=== PATIENT | male | born 1995 | race African-American/Black ===

== ENCOUNTER 2024-12-26 08:33 | Emergency (ER) | payer OTHER, SELFPAY ==
[2024-12-26 08:38] VITALS: BP 183/134; PULSE 84; RESP 24; TEMP 36.4; O2SAT 97; BMI 44.1
--- NOTE | 2024-12-26 08:41 | CRLHL7_ITS ---
For Patients: As a result of the Century Cures Act, medical imaging exams and procedure reports are released immediately into your electronic medical record. You may view this report before your referring provider. If you have questions, please contact your health care provider. INDICATION: Left knee pain and swelling. COMPARISON: None available. TECHNIQUE: Three views of the left knee. FINDINGS: Mineralization: Normal. Alignment: Normal. Bones and Joints: Femoral and tibial suspensory devices consistent with prior ACL repair are noted. Mild medial tibiofemoral osteoarthrosis. No fracture is identified. Soft Tissues: No significant joint effusion or focal periarticular soft tissue swelling. Clustered calcifications measuring 3 mm and smaller are present at the anterior joint line level on the lateral view. These may represent small loose intra-articular bodies. IMPRESSION: No acute findings to explain the clinical history of pain and swelling. Findings consistent with prior ACL repair. No significant joint effusion or focal periarticular soft tissue swelling on this radiographic study. Incidental findings described in the body of the report. Dictated by Colten Quezada MD @ 12/26/2024 9:18:29 AM (Electronically Signed)
--- NOTE | 2024-12-26 08:46 | ED.LOWEXIN ---
HPI - Extremity Injury (Lower) General Time Seen by Provider: 08:46 Date Seen: 12/26/24 Chief Complaint: Extremity Pain/Injury, Lower Stated Complaint: left knee pain Time Seen by Provider: 12/26/24 08:46 Source: patient and RN notes reviewed Mode of arrival: ambulatory Limitations: no limitations History of Present Illness HPI Narrative: This 29-year-old male is coming in with complaint of left knee pain. This pain awoke him around 2:00 a.m.. He tried Tylenol, tried elevating, tried ice and heat. He cannot bear weight on it. He has swelling below the kneecap on the left knee now. Any movement or any attempts to bear weight are painful. Did play softball last night but does not have any injury from that. He left softball, drove home, had no problems. He has a history of ACL, meniscus and MCL repair in this knee about 4 years ago. Patient has no symptomatic history of gout, he has never been diagnosed with it. He has never had any joint problems that have been concerning outside of his injury before. There have been no fevers. He is not aware of any family history of gout. Related Data Previous Rx's ?Medication ?Instructions ?Recorded oxycodone 5 mg tablet 5 mg PO Q6H PRN pain #15 tabs 12/26/24 Allergies Allergy/AdvReac Type Severity Reaction Status Date / Time No Known Drug Allergies Allergy Verified 12/26/24 08:41 Review of Systems Status of ROS: Reports: 6 or more systems reviewed and unremarkable except as noted in History and below PFSH PFS Surgical History H/O arthroscopy of left knee (2020) ?Z98.890 - Other specified postprocedural states (ICD-10) Social History Smoking Status: Unknown if ever smoked Exam Const: Vital Signs, click to edit/add: Vital Signs - 24 hr 12/26/24 08:38 12/26/24 10:40 12/26/24 10:40 Temperature 97.5 F L Pulse Rate [Pulse Oximeter] 84 80 Respiratory Rate 24 24 Blood Pressure [Ri ght Upper Arm] 183/134 H Pulse Oximetry 97 93 93 Oxygen Delivery Me thod Room Air Room Air 12/26/24 11:59 Temperature Pulse Rate [Pulse Oximeter] 78 Respiratory Rate 18 Blood Pressure [Ri ght Upper Arm] 155/104 H Pulse Oximetry 96 Oxygen Delivery Me thod Room Air This 29-year-old male is alert, interactive, seen in exam room 1. With straight leg raise, any attempts at any manipulation of his knee he has severe pain. There is maybe slight fluid inferiorly but overall I would not say he has a significant effusion. There is no erythema, no warmth to the knee. He has some anterior medial joint line pain. I do not feel any popliteal fossa mass. Patella is nontender. No lateral joint line tenderness. He can lift the leg off the bed slightly but it is significantly painful. Documenting provider has reviewed patient's vital signs: yes Course Course ED Course: Patient has tolerated narcotics in the past, do think he has level of pain that we need to initiate some pain management for him. Have ordered 5 mg of oxycodone. Will obtain left knee x-rays. May need to consider advanced imaging in this patient. Reevaluation(s) Time of Reevaluation #1: 09:18 Reevaluation #1: Reviewed with patient that I have visualized his knee x-rays, do not see any definite acute pathology but awaiting Radiology over-read. Nursing staff is getting him an ice pack as his pain has not subsided. He really only had the oxycodone about 15-20 minutes ago, will give this a little longer. He declined Toradol injection at this point. Orthopedics is currently in surgery, am hoping to talk to them about getting this patient an MRI as I think he is likely going to need it. Time of Reevaluation #2: 10:29 Reevaluation #2: Nursing staff reports that patient is still pretty miserable with his pain. We are going to place an IV, give IV pain medicines with morphine and Toradol, will premedicate with Zofran. Will have him on pulse oximetry given that he is getting narcotics. Need him comfortable prior to going to the MRI. Do have him scheduled to see Dr. Mahoney this afternoon. Will get baseline labs as we are placing an IV. Time of Reevaluation #3: 11:55 Reevaluation #3: Have reviewed patient's MRI report with him. There are many things here, unclear to me what necessarily is the causative etiology but there are multitude of abnormalities on his MRI. Dr. Mahoney in Orthopedics will be seeing him this afternoon. Patient does feel he wants a knee immobilizer, feels better if the knee is not moving. We will fit him for a knee immobilizer. We will also provide him crutches as he does not have any. Will discharge to home with outpatient follow-up with Orthopedics this afternoon. Consultations Consultation #1: Have spoken with Heather from orthopedics. She agrees with MRI and there is possibility of Dr. Mahoney can see this patient this afternoon. 12:00 p.m.: Did call Dr. Mahoney and briefly reviewed MRI report. Discussed pain management with him. I will write for 15 tablets of oxycodone, he feels this should be sufficient for initial pain management for this patient in that this patient should not be narcotic dependent. He will be seen the patient later. Note patient's pain is controlled at the time, did do much better with some initial IV management. Time: 10:13 Vital Signs Vital signs: Initial Vital Signs Temperature 97.5 F L 12/26/24 08:38 Temperature Source Temporal Artery Scan 12/26/24 08:38 Pulse Rate 84 12/26/24 08:38 Respiratory Rate 24 12/26/24 08:38 Blood Pressure 183/134 H 12/26/24 08:38 Blood Pressure Mean 150 H 12/26/24 08:38 Blood Pressure Position Sitting 12/26/24 08:38 Pulse Oximetry 97 12/26/24 08:38 Oxygen Delivery Method Room Air 12/26/24 08:38 Vital Signs Temperature 97.5 F L 12/26/24 08:38 Pulse Rate 84 12/26/24 08:38 Respiratory Rate 24 12/26/24 08:38 Blood Pressure 183/134 H 12/26/24 08:38 Pulse Oximetry 97 12/26/24 08:38 Oxygen Delivery Method Room Air 12/26/24 08:38 Temperature 97.5 F L 12/26/24 08:38 Pulse Rate 78 12/26/24 11:59 Respiratory Rate 18 12/26/24 11:59 Blood Pressure 155/104 H 12/26/24 11:59 Pulse Oximetry 96 12/26/24 11:59 Oxygen Delivery Method Room Air 12/26/24 11:59 Medications Administered Medications: Discontinued Medications Generic Name Dose Route Start Last Admin Trade Name Monserrat PRN Reason Stop Dose Admin Ketorolac Tromethamine 15 mg 12/26/24 10:27 12/26/24 10:35 Ketorolac 15 Mg/Ml Inj IVP 12/26/24 10:28 15 mg ONCE ONE Administration Morphine Sulfate 4 mg 12/26/24 10:27 12/26/24 10:38 Morphine 4 Mg/Ml Inj IVP 12/26/24 10:28 4 mg ONCE ONE Administration Ondansetron HCl 4 mg 12/26/24 10:27 12/26/24 10:35 Ondansetron 2 Mg/Ml Inj IVP 12/26/24 10:28 4 mg ONCE ONE Administration Oxycodone HCl 5 mg 12/26/24 08:50 12/26/24 08:53 Oxycodone 5 Mg Tablet PO 12/26/24 08:51 5 mg ONCE ONE Administration MDM - Extremity Injury (Lower) Lab Data Attestation: I reviewed the patient's lab results. Labs: Lab Results 12/26/24 Range/Units 10:40 WBC 8.76 (4.50-11.00) K/uL RBC 4.77 (4.30-5.90) m/uL Hgb 14.3 (13.5-17.5) gm/dL Hct 42.6 (37.0-53.0) % MCV 89 (80-100) fL MCH 30 (26-34) pg MCHC 34 (32-36) gm/dL RDW Coeff of Danielle 12.6 (11.5-15.5) % Plt Count 357 (140-440) K/uL Neut % (Auto) 62.5 (42.0-72.0) % Lymph % (Auto) 26.4 (20-44) % Blaine % (Auto) 8.3 (0.0-11.0) % Eos % (Auto) 1.6 (0.0-7.0) % Baso % (Auto) 0.7 (0.0-3.0) % Neut # (Auto) 5.48 (1.7-7.0) K/uL Lymph # (Auto) 2.31 (0.90-2.90) K/uL Blaine # (Auto) 0.70 (0.00-0.90) K/UL Eos # (Auto) 0.14 (0.00-0.50) K/uL Baso # (Auto) 0.06 (0.00-0.30) K/uL Abs Immat Gran (auto) 0.04 (0.00-0.30) K/uL Imm/Tot Granulo (auto) 0.5 % ESR 7 (2-15) mm/hr Sodium 138 (135-149) mmol/L Potassium 3.8 (3.6-5.1) mmol/L Chloride 102 (96-114) mmol/L Carbon Dioxide 28 (20-32) mmol/L Anion Gap 8 (7-15) mEq/L BUN 8 (5-24) mg/dL Creatinine 0.6 (0.5-1.5) mg/dL Estimated Creat Clear 195.80 Estimated GFR 132 ml/min Glucose 122 H (60-115) mg/dL Uric Acid 6.7 (2.2-8.4) mg/dL Calcium 9.5 (8.4-10.6) mg/dL C-Reactive Protein 1.6 H (0.5-1.0) mg/dL Imaging Data XR left knee: Attestation: I have reviewed the pertinent imaging results. My impression: I see hardware from prior surgery but do not appreciate any acute fracture, await Radiology over-read. Radiologist's impression: Patient: HARRY CARUSO Facility:?[facility] Patient ID:?[id number] Site Patient ID:?[id number]. Site :?1993 Study:?XRay-Knee 3V-12/26/2024 9:08:53 AM Ordering Physician:?Anil Sarkar Final Report: INDICATION: Left knee pain and swelling. COMPARISON: None available. TECHNIQUE: Three views of the left knee. FINDINGS: Mineralization: Normal. Alignment: Normal. Bones and Joints: Femoral and tibial suspensory devices consistent with prior ACL repair are noted. Mild medial tibiofemoral osteoarthrosis. No fracture is identified. Soft Tissues: No significant joint effusion or focal periarticular soft tissue swelling. Clustered calcifications measuring 3 mm and smaller are present at the anterior joint line level on the lateral view. These may represent small loose intra-articular bodies. IMPRESSION: No acute findings to explain the clinical history of pain and swelling. Findings consistent with prior ACL repair. No significant joint effusion or focal periarticular soft tissue swelling on this radiographic study. Incidental findings described in the body of the report. Dictated by Colten Quezada MD @ 12/26/2024 9:18:29 AM (Electronic Signature) MR left knee: Attestation: I have reviewed the pertinent imaging results. Radiologist's impression: Patient: HARRY CARUSO Facility:?[facility] Patient ID:?[id number] Site Patient ID:?[id number]. Site :?1993 Study:?MRI-Knee Left wo-12/26/2024 11:29:05 AM Ordering Physician:Eldon Sarkar Final Report: CLINICAL INDICATION: Severe left knee pain. History of prior knee surgery. COMPARISON STUDIES: Radiographs from 12/26/2024. TECHNICAL: Noncontrast MRI of the left knee. 1.5 georgette MRI scanner. Axial, sagittal and coronal T1, PD, PD FS and T2 FS images. FINDINGS: MEDIAL COMPARTMENT: Medial Meniscus: The medial meniscal body is severely attenuated. There is vertical longitudinal tearing of the posterior horn of the medial meniscus as noted on sagittal T2 fat-sat image number 9 of series 10 for example. Articular Cartilage: Marginal osteophyte formation. Grade 4 chondromalacia involves the junction of the central and posterior aspects of the medial femoral condyle and posterior aspect of the medial tibial plateau with subchondral bone edema. LATERAL COMPARTMENT: Lateral Meniscus: Sequelae of prior degenerative tearing of the undersurface and free edge of the posterior horn of lateral meniscus. Fraying of the anterior horn root of the meniscus. Articular Cartilage: Grade 4 full-thickness cartilage loss involving the central lateral femoral condyle with subchondral bone edema. High-grade chondromalacia of the lateral tibial plateau posteriorly (grade 3). PATELLOFEMORAL COMPARTMENT: Articular Cartilage: Mild osteophyte formation. High-grade chondromalacia of the medial trochlea (grade 3). Mild chondromalacia of the medial patellar facet (grade 2). LIGAMENTS: Anterior Cruciate Ligament: Status post ACL reconstruction. Graft appears mildly lax in appearance though there are intact graft fibers. Appropriate tunnel position. Posterior Cruciate Ligament: Intact. MEDIAL COLLATERAL LIGAMENT AND POSTEROMEDIAL CORNER COMPLEX: Medial Collateral Ligament: Intact. Medial Head of the Gastrocnemius and Semimembranosus Tendons: Normal. LATERAL COLLATERAL LIGAMENT COMPLEX AND POSTEROLATERAL CORNER COMPLEX: Fibular Collateral Ligament: Normal. Distal Biceps Femoris Tendon Complex: Normal. Iliotibial Band: Normal. Popliteus Tendon: Normal. Posterolateral Corner Capsule: Normal. EXTENSOR MECHANISM: Distal Quadriceps Tendon: Chronic central defect of the distal quadriceps tendon may be postsurgical. Patellar Tendon: Intact. Medial Patellar Retinaculum and Medial Patellofemoral Ligament: Intact. Lateral Patellar Retinaculum: Intact. Normal patellar alignment. No patella jaspreet. Normal trochlear depth. Normal lateral trochlear inclination. JOINT SPACE AND CAPSULE: Small joint effusion with synovitis. 5 millimeter joint body present posterior to the posterior horn root region of the medial meniscus. 4.5 millimeter joint body within the suprapatellar joint space. BONES AND SOFT TISSUES: There is no acute fracture. Avascular necrosis is noted involving the lateral femoral condyle.7 x 3.5 x 1.4 centimeter popliteal cyst. IMPRESSION: 1. Advanced degenerative arthrosis of the left knee. There are areas of full-thickness grade 4 cartilage loss with subchondral bone marrow edema. 2. Status post ACL reconstruction. Mildly lax appearance of the graft though with intact graft fibers present. 3. Sequelae of tearing of the medial and lateral menisci. 4. Small effusion with synovitis and small joint bodies. 5. 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 6. 7 cm long dimension popliteal cyst. Dictated by Hugo Robin MD @ 12/26/2024 11:46:41 AM (Electronic Signature) Discharge Plan Discharge Clinical Impression: Acute knee pain Qualifiers: Laterality: left Qualified Code(s): M25.562 - Pain in left knee Patient Disposition: Home, Self-Care Condition: Stable Instructions: Knee Pain (ED) Additional Instructions: Follow up appointment is scheduled at the [facility] on 12/26 with a 2pm appointment time. If you have any questions, please call [phone]. [facility] [address] [address] Use knee immobilizer and crutches for pain-free weight-bearing, discuss further with the orthopedist as to ongoing use of these. I have written for 15 tablets of oxycodone to be used for more severe pain. Baseline use Tylenol 1000 mg 3 times a day. Can use ibuprofen per bottle directions for additional pain control or what of her else the orthopedist recommends. Please bring MRI report with you to this visit. Prescriptions: New oxycodone 5 mg tablet 5 mg PO Q6H PRN (Reason: pain) Qty: 15 0RF Follow Up/Referrals: Provider,Not a Local [Primary Care Provider, Family Practice] Stand Alone Forms: [employer] Info Instructions
--- OUTSIDE RECORDS SUMMARY | 2024-12-26 09:51 | XMS_ITS | Clinical Summary ---
Author Organization [place] Address [address] [place] [address]. [place] [address] Care Team Providers Care Bar Helper Name Role Phone Nakul Cabrera MD Primary Care Provider [phone] Allergies No known active allergies Medications order for DMEIndications: Acute pain of left knee Right elastic knee brace 1 Device 07/03/2019 Active amLODIPine (NORVASC) 10 MG tablet Take 10 mg by mouth 04/05/2020 Active lisinopril (ZESTRIL) 20 MG tablet Take 20 mg by mouth 04/05/2020 Active Active Problems Problem Noted Date Diagnosed Date Benign essential hypertension 11/08/2020 Resolved Problems Problem Noted Date Diagnosed Date Resolved Date Sprain, knee 01/30/2009 02/19/2009 Immunizations Immunization Administration Dates Next Due DTAP (<7y) 07/03/1998,02/04/1995 HEPA 01/17/2009 HIB (PRP-T) 05/05/1994 HepB 02/05/2004,1993,1993 MMR (MMRII) 02/04/2005,05/05/1994 Meningococcal ACWY (Menactra ) 02/01/2007 OPV, trivalent, live 07/03/1998,02/04/1995,06/10,1993 TD,PF 7+ (Tenivac) 02/04/2005 Tetramune (DtP/HIB) 1993,1993,1992 Varicella (Varivax) 02/01/2008,02/04/1995 Family History Medical History Relation Comments Blood Disease Father Hep C Diabetes Father Relation Status Comments Father Social History Tobacco Use Types Packs/Day Years Used Date Smoking Tobacco: Former Cigarettes Q uit: 06/07/2019 Smokeless Tobacco: Current Tobacco Cessation:Ready to Q uit: No; Counseling Given: Yes Comments:Vapes Alcohol Use Standard Drinks/Week Comments Yes 0 (1 standard drink = 0.6 oz pur e alcohol) AUDIT-C Answer Date Recorded Q1: How often do you have a drink containing alc ohol? 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 Gender Identity Not on file Sexual Orientation Not on file Last Filed Vital Signs Vital Sign Reading Time Taken Comments Blood Pressure 136/92 11/08/2020 10:05 AM CDT Pulse 71 11/08/2020 10:05 AM CDT Temperature 36.8 C (98.3 F) 11/08/2020 10:05 AM CDT Respiratory Rate 18 11/08/2020 10:0 5 AM CDT Oxygen Saturation 97% 11/08/2020 10: 05 AM CDT Inhaled Oxygen Concentration - - Weight 124.4 kg (274 lb 4.8 oz) 021 10:05 AM CDT Height 182.9 cm (6') 11/08/2020 10:05 AM CDT Body Mass Index 37.2 11/08/2020 10:05 AM CDT Plan of Treatment Not on file Insurance [facility] Care Teams Bar Helper Relationship Specialty Start Date End Date Nakul Cabrera MD [address] [place] [address] [facility] - General 12/16/01
--- OUTSIDE RECORDS SUMMARY | 2024-12-26 09:51 | XMS_ITS | Encounter Summary ---
Author Organization [place] Address [facility] [place] [address] Care Team Providers Care Fuel Cell Builder Name Role Phone Nakul Cabrera MD Primary Care Provider [phone] [facility] Unavailable Encounter Details Date Type Department Care Team (Late st Contact Info) Description 02/27/2021 MyC Medical Advice [facility] [address] [phone] Minnie Jacobs GC Social History Tobacco Use Types Packs/Day Years Used Date Smoking Tobacco: Former Cigarettes Q uit: 06/07/2019 Smokeless Tobacco: Current Comments:Vapes Alcohol Use Standard Drinks/Week Comments Yes 0 (1 standard drink = 0.6 oz pur e alcohol) AUDIT-C Answer Date Recorded Q1: How often do you have a drink containing alc ohol? 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
--- NOTE | 2024-12-26 10:15 | CRLHL7_ITS ---
For Patients: As a result of the 21st Century Cures Act, medical imaging exams and procedure reports are released immediately into your electronic medical record. You may view this report before your referring provider. If you have questions, please contact your health care provider. CLINICAL INDICATION: Severe left knee pain. History of prior knee surgery. COMPARISON STUDIES: Radiographs from 12/26/2024. TECHNICAL: Noncontrast MRI of the left knee. 1.5 georgette MRI scanner. Axial, sagittal and coronal T1, PD, PD FS and T2 FS images. FINDINGS: MEDIAL COMPARTMENT: Medial Meniscus: The medial meniscal body is severely attenuated. There is vertical longitudinal tearing of the posterior horn of the medial meniscus as noted on sagittal T2 fat-sat image number 9 of series 10 for example. Articular Cartilage: Marginal osteophyte formation. Grade 4 chondromalacia involves the junction of the central and posterior aspects of the medial femoral condyle and posterior aspect of the medial tibial plateau with subchondral bone edema. LATERAL COMPARTMENT: Lateral Meniscus: Sequelae of prior degenerative tearing of the undersurface and free edge of the posterior horn of lateral meniscus. Fraying of the anterior horn root of the meniscus. Articular Cartilage: Grade 4 full-thickness cartilage loss involving the central lateral femoral condyle with subchondral bone edema. High-grade chondromalacia of the lateral tibial plateau posteriorly (grade 3). PATELLOFEMORAL COMPARTMENT: Articular Cartilage: Mild osteophyte formation. High-grade chondromalacia of the medial trochlea (grade 3). Mild chondromalacia of the medial patellar facet (grade 2). LIGAMENTS: Anterior Cruciate Ligament: Status post ACL reconstruction. Graft appears mildly lax in appearance though there are intact graft fibers. Appropriate tunnel position. Posterior Cruciate Ligament: Intact. MEDIAL COLLATERAL LIGAMENT AND POSTEROMEDIAL CORNER COMPLEX: Medial Collateral Ligament: Intact. Medial Head of the Gastrocnemius and Semimembranosus Tendons: Normal. LATERAL COLLATERAL LIGAMENT COMPLEX AND POSTEROLATERAL CORNER COMPLEX: Fibular Collateral Ligament: Normal. Distal Biceps Femoris Tendon Complex: Normal. Iliotibial Band: Normal. Popliteus Tendon: Normal. Posterolateral Corner Capsule: Normal. EXTENSOR MECHANISM: Distal Quadriceps Tendon: Chronic central defect of the distal quadriceps tendon may be postsurgical. Patellar Tendon: Intact. Medial Patellar Retinaculum and Medial Patellofemoral Ligament: Intact. Lateral Patellar Retinaculum: Intact. Normal patellar alignment. No patella jaspreet. Normal trochlear depth. Normal lateral trochlear inclination. JOINT SPACE AND CAPSULE: Small joint effusion with synovitis. 5 millimeter joint body present posterior to the posterior horn root region of the medial meniscus. 4.5 millimeter joint body within the suprapatellar joint space. BONES AND SOFT TISSUES: There is no acute fracture. Avascular necrosis is noted involving the lateral femoral condyle.7 x 3.5 x 1.4 centimeter popliteal cyst. IMPRESSION: 1. Advanced degenerative arthrosis of the left knee. There are areas of full-thickness grade 4 cartilage loss with subchondral bone marrow edema. 2. Status post ACL reconstruction. Mildly lax appearance of the graft though with intact graft fibers present. 3. Sequelae of tearing of the medial and lateral menisci. 4. Small effusion with synovitis and small joint bodies. 5. 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 6. 7 cm long dimension popliteal cyst. Dictated by Hugo Robin MD @ 12/26/2024 11:46:41 AM (Electronically Signed)
[2024-12-26] MEDS: ONDANSETRON 2 MG/ML inj 4 MG IVP (10:35)
[2024-12-26] MEDS: MORPHINE 4 MG/ML INJ IVP (10:38)
[2024-12-26 10:40] VITALS: PULSE 80; RESP 24; O2SAT 93
[2024-12-26 11:06] LABS: Hematocrit 42.6 % (37.0-53.0); Hemoglobin* 14.3 gm/dL (13.5-17.5); Immature Granulocytes Abs Auto 0.04 K/uL (0.00-0.30); Immature Granulocytes Pct Auto 0.5 %; Lymphocytes Absolute Auto 2.31 K/uL (0.90-2.90); Mean Corpuscular HGB Conc 34 gm/dL (32-36); Mean Corpuscular Hemoglobin 30 pg (26-34); Mean Corpuscular Volume 89 fL (80-100); RDW Coefficient of Variation % 12.6 % (11.5-15.5); Red Blood Count 4.77 m/uL (4.30-5.90); White Blood Count* 8.76 K/uL (4.50-11.00)
[2024-12-26 11:10] LABS: Slide Review Reflex No
[2024-12-26 11:12] LABS: Chloride* 102 mmol/L (96-114); Potassium* 3.8 mmol/L (3.6-5.1); Sodium* 138 mmol/L (135-149)
[2024-12-26 11:14] LABS: Blood Urea Nitrogen* 8 mg/dL (5-24); Creatinine* 0.6 mg/dL (0.5-1.5); Est. Creatinine Clearance* 195.80; Estimated Glomerular Filt Rate 132 ml/min
[2024-12-26 11:15] LABS: Anion Gap 8 mEq/L (7-15); Carbon Dioxide* 28 mmol/L (20-32)
[2024-12-26 11:16] LABS: Calcium* 9.5 mg/dL (8.4-10.6); Glucose* 122 mg/dL (60-115)
[2024-12-26 11:54] LABS: Erythrocyte SedimentationRate* 7 mm/hr (2-15)
[2024-12-26 11:59] VITALS: BP 155/104; PULSE 78; RESP 18; O2SAT 96
== END 2024-12-26 12:40 | disposition home or self-care (01) ==
PROVIDERS: Emergency Provider Family Medicine
DX: M25.562 Pain in left knee (principal)
CPT/HCPCS: 36415; 73562; 73721; 80048; 84550; 85025; 85651; 86140; 94761; 96374; 96375; 99283; 99284; A9270; J1885; J2270; J2405